=== PATIENT | male | born 2005 | race Two or more races ===

== ENCOUNTER 2024-02-20 16:00 | Emergency (ER) | payer OTHER, SELFPAY ==
--- NOTE | ~2024-02-20 | XR_ITS ---
EXAMINATION: XR ANKLE, LEFT CLINICAL INFORMATION: Rolled ankle, heard pop COMPARISON: None available. TECHNIQUE: AP, lateral, and mortise views of the left ankle. FINDINGS: No fracture. Alignment is anatomic. No erosions. Joint spaces are maintained. Mild soft tissue swelling is seen over the lateral malleolus. XR/XR ankle LT min 3V IMPRESSION: No bony abnormality. Electronically signed by: Deborah Elliott MD 02/20/2024 04:42 PM EDT
--- NOTE | ~2024-02-20 | XR_ITS ---
EXAMINATION: XR FOOT, LEFT CLINICAL INFORMATION: Rolled ankle, heard pop COMPARISON: Same day left ankle TECHNIQUE: AP, lateral, and oblique views of the left foot. FINDINGS: The bones are intact. No fracture. Alignment is anatomic. Joint spaces are maintained. XR/XR foot LT min 3V IMPRESSION: No bony abnormality. Electronically signed by: Deborah Elliott MD 02/20/2024 04:44 PM EDT RP
[2024-02-20 16:14] VITALS: BP 148/84; PULSE 70; RESP 16; TEMP 36.9; O2SAT 98; BMI 33.6
--- NOTE | 2024-02-20 16:15 | ED_ITS ---
HPI - Extremity Injury (Lower) General Chief Complaint: Extremity Injury, Lower Stated Complaint: L ankle, work injury Time Seen by Provider: 02/20/24 16:52 Source: patient Mode of arrival: ambulatory Limitations: no limitations History of Present Illness ED Provider: LAUREN CONLEY PA-C HPI Narrative: 18 year old male with no significant past medical history presents to the ED today with left ankle pain status post work injury prior to arrival. Patient states that he was stepping off of a box truck when he stepped wrong and felt a pop in his ankle. Since this time, reports pain to the lateral aspect of his left ankle. Has been unable to bear weight on the left foot. Denies numbness, tingling, weakness of the LEs. Denies fever, chills. Related Data Allergies Allergy/AdvReac Type Severity Reaction Status Date / Time No Known Allergies Allergy Verified 02/20/24 16:15 Review of Systems Review of Systems: Constitutional: No fever, chills, fatigue, night sweats, weight changes ENT/Mouth: No ear pain, hearing loss, nasal congestion, sinus pain, rhinorrhea, sore throat Eyes: No eye pain, swelling, redness, vision changes, discharge Cardio: No chest pain, palpitations, SAMANO, orthopnea, peripheral edema Pulm: No SOB, cough, sputum, wheezing, dyspnea, hemoptysis GI: No nausea, vomiting, hematemesis, abdominal pain, diarrhea, constipation, hematochezia, melena : No irregular bleeding, dysuria, frequency, urgency, hesitancy, hematuria, flank pain, urinary flow changes, urinary incontinence or retention MSK: No back pain, neck pain, joint pain, myalgias, +left ankle pain Skin: No lesions, rashes Neuro: No weakness, numbness, paresthesias, LOC, dizziness, headache Psych: No anxiety/panic, depression, SI/HI, AH/VH All other systems reviewed and are negative. [facility] Past Medical History Attestation statement: The following information was validated with the patient. Source: old records reviewed and nursing notes reviewed Social History Social History Advance Directives: No Advance Directives Information Provided: No Physical Exam Vital Signs: Vital Signs: Last Vital Signs Temp 97.5 F 02/20/24 17:14 Pulse 78 02/20/24 17:14 Resp 18 02/20/24 17:14 BP 00/00 L 02/20/24 17:14 Pulse Ox 98 02/20/24 17:14 O2 Del Method Room Air 02/20/24 17:14 BMI result Body Mass Index 33.6 Vital signs stable Const: General: cooperative, healthy appearing, comfortable and no acute distress Orientation/consciousness: patient oriented x3 Limitations: no limitations HEENT: Head: Yes normal to inspection, Yes normocephalic and Yes atraumatic Eyes: General: appearance normal, both eyes and all related structures Conjunctivae: conjunctivae normal Sclerae: sclerae normal Pupils: Equal, round and reactive pupils present Neck: Neck: Yes normal visual inspection and Yes full ROM Resp: Effort & Inspection: normal respiratory effort Auscultation: clear to auscultation bilaterally Cardio: Rate: regular rate Rhythm: regular rhythm Skin: General skin exam: no rashes or lesions noted Neuro: Other: Strength 5/5 intact throughout.?Sensation intact to light touch.?Neurovascular intact distally.? General: patient oriented x3, gait normal and moves all extremities Cranial nerves: Yes Equal, round and reactive pupils present Extrem: Other: + left ankle with noted swelling to late ral aspect. No overlying skin changes. Tender to palpation. No palpable deformity, crepitus, warmth, fluctuance. ROM to left ankle limited due to pain/discomfort. 2+ DP/PT pulse intact. Sensation intact to light touch. General: Yes normal to inspection Course Course Course Narrative: This is a Rapid Medical Examination (RME) performed by Khushbu Conley PA-C in triage. Full HPI, ROS, assessment and treatment plan per primary provider in the Main ED. 18 yo male here for eval of left ankle/foot pain s/p injury at work [employer]. patient states that he was stepping off of a box truck when he stepped into an uneven area and heard his ankle pop . is unsure if he rolled the ankle. admits he hasn't been able to bear weight on the left ankle. + minimal swelling to lateral left ankle. no overlying ecchymosis. limited ROM d/t pain. 2+ pt/dp pulse intact. Plan: xr Reevaluation(s) Reevaluation #1: 1700 -- x-ray left foot/ankle without acute fracture. Suspicion for left ankle sprain. Patient is supplied with Aircast and crutches for comfort. Advised to alternate Tylenol ibuprofen at home. Educated on RICE therapy. Patient has remained stable throughout ED visit today. Discussed worrisome signs and symptoms and when to return to the ED. All questions answered at this time. Patient is agreeable with disposition and stable for discharge. Medical Decision Making Medical Decision Making MDM Narrative: 18 year old male with no significant past medical history presents to the ED today with left ankle pain status post work injury prior to arrival. Patient hypertensive to 148/84, vitals otherwise WNL. He is nontoxic appearing in no acute distress. Presents in wheelchair due to pain with ambulation/bearing weight on left lower extremity. On exam there is minimal swelling to the lateral aspect of the left ankle near the lateral malleolus. No overlying erythema or ecchymoses. No obvious deformity. Slightly tender to palpation of lateral ankle. No palpable deformity, warmth, crepitus. ROM of left ankle limited due to pain/discomfort. 2+ DP/PT pulse intact. Sensation intact to light touch. Differential diagnosis includes contusion, fracture, msk sprain/ strain. Unlikely dislocation, compartment syndrome, threat to limb, nv compromise. Plan for imaging, pain control, re-evaluation. Differential Diagnosis Differential Diagnoses: The differential diagnosis associated with the presentation includes as above. Admission/Observation Not indicated. Independent Interpretation I performed an independent interpretation of an: Plain X-Ray Interpretation: X-ray left foot/ankle without acute fracture, agree with radiologist's interpretation. Radiology Impression Discussion of test interpretation with radiology: I have reviewed the radiologist's reading. Radiologist Impression: EXAMINATION: XR FOOT, LEFT CLINICAL INFORMATION: Rolled ankle, heard pop COMPARISON: Same day left ankle TECHNIQUE: AP, lateral, and oblique views of the left foot. FINDINGS: The bones are intact. No fracture. Alignment is anatomic. Joint spaces are maintained. XR/XR foot LT min 3V IMPRESSION: No bony abnormality. Electronically signed by: Deborah Elliott MD 02/20/2024 04:44 PM EDT EXAMINATION: XR ANKLE, LEFT CLINICAL INFORMATION: Rolled ankle, heard pop COMPARISON: None available. TECHNIQUE: AP, lateral, and mortise views of the left ankle. FINDINGS: No fracture. Alignment is anatomic. No erosions. Joint spaces are maintained. Mild soft tissue swelling is seen over the lateral malleolus. XR/XR ankle LT min 3V IMPRESSION: No bony abnormality. Electronically signed by: Deborah Elliott MD 02/20/2024 04:42 PM EDT RP External Record Review External record reviewed: Inpatient record, Office record, Outpatient record, Prior outpatient labs, Prior outpatient radiology, Primary care record and Outside ED record Prescription Management I considered prescription management with: Pain Medication (Tylenol, ibuprofen) Social Determinants Patient?s care significantly limited by Social Determinants of Health including: Other Social Determinant of Health Procedures Orthopedic Splinting/Casting Injury #1: Side: left Lower Extremity Injury Location: ankle Lower Extremity Immobilizer: AirCast Other Orthopedic Equipment: crutches Critical Care Time Critical Care Time Critical Care Time: No Discharge Plan Discharge Clinical Impression: Left ankle sprain Patient Disposition: Home, Self-Care Instructions: Ankle Sprain (ED), Crutch Instructions (ED), R.I.C.E. Treatment (ED), Walking Boot (ED) Additional Instructions: The x-ray of your left ankle/foot does not demonstrate acute fracture. You likely sprained your ankle. You were provided with crutches along with an Aircast today for comfort. You may bear weight onto your left foot as tolerated. I recommend you take 600mg ibuprofen every 6 hours or tylenol 650mg every 6 hours as needed for pain. If needed, you can alternate these medications so that you take one medication every 3 hours. For example, at noon take ibuprofen, then at 3pm take Tylenol, then at 6pm take ibuprofen.? Rest, ice, and elevate your left ankle above heart level to help with swelling. Please [facility] up with the [facility] as this was a work-related injury. You have been provided with their number. Call them to make an appointment. Please follow up with your PCP as needed. Return with new or worsening symptoms. In the case of an emergency call 911. [place] [facility] [place] [facility] [place] [Outside] Stand Alone Forms: Work/School Release Interventions: ED Discharge Assessment Last Done: 02/20/24 17:14 Discharge Date/Time: 02/20/24 17:16 Print Language: [place] Islander
[2024-02-20 17:14] VITALS: BP 00/00; PULSE 78; RESP 18; TEMP 36.4; O2SAT 98
== END 2024-02-20 17:16 | disposition home or self-care (01) ==
LOC: HO.ED 17:09
PROVIDERS: Emergency Provider Emergency Medicine
DX: S93.402A Sprain of unspecified ligament of left ankle, initial encounter (principal); M79.672 Pain in left foot; X50.1XXA Overexertion from prolonged static or awkward postures, initial encounter; Y93.89 Activity, other specified; Y92.89 Other specified places as the place of occurrence of the external cause; Y99.0 Civilian activity done for income or pay
CPT/HCPCS: 29515; 73610; 73630; 99282; 99283; 99284